=== PATIENT | female | born 1980 | race African-American/Black ===

== ENCOUNTER 2018-12-31 14:14 | Emergency (ER) | payer MEDICAID, MEDICARE ==
[~2018-12-31] VITALS: Ht 162.6 cm; Wt 84.0 kg
[2018-12-31 18:57] LABS: BASOPHILS % 0.6 % (0.0-2.0); EOSINOPHILS % 1.1 % (0.0-5.0); HEMATOCRIT. 36.3 % (36.0-48.0); MEAN CORPUSCULAR HEMOGLOBIN 26.4 pg (28.0-32.0); MONOCYTES % 6.3 % (2.0-8.0); PLATELET 409 x1000/uL (130-400); RED BLOOD CELL COUNT 4.54 mill/uL (4.2-5.4); RED CELL DISTRIBUTION WIDTH 15.1 % (11.6-14.6)
[2018-12-31 19:01] LABS: CHLORIDE 106 mEq/L (98-107)
[2018-12-31 19:46] LABS: CLARITY URINE CLEAR (CLEAR); COLOR URINE YELLOW (YELLOW); KETONES URINE TRACE (NEGATIVE); LEUKOCYTE ESTERASE URINE NEGATIVE (NEGATIVE); NITRITE URINE NEGATIVE (NEGATIVE); OCCULT BLOOD URINE NEGATIVE (NEGATIVE); PH URINE 6.5 (4.5-8.0); PROTEIN URINE NEGATIVE (NEGATIVE); SPECIFIC GRAVITY URINE 1.027 (1.005-1.030); UROBILINOGEN URINE 0.2 E.U./dL (0.2-1.0)
[2018-12-31] MEDS ORDERED: IBUPROFEN 600MG TABLET PO ONE (23:00)
[2018-12-31 23:34] VITALS: BP 126/72
== END 2018-12-31 23:34 | disposition home or self-care (01) ==
LOC: ER 14:14
DX: N83.292 Other ovarian cyst, left side (principal); N83.291 Other ovarian cyst, right side; Z87.891 Personal history of nicotine dependence
CPT/HCPCS: 36415; 76830; 76856; 81025; 99284

== ENCOUNTER 2020-12-03 10:20 | Emergency (ER) | payer SELFPAY ==
[~2020-12-03] VITALS: Ht 160 cm; Wt 78.0 kg
[2020-12-03 10:31] VITALS: BP 128/88
== END 2020-12-03 10:53 | disposition home or self-care (01) ==
LOC: ER 10:20
DX: K02.9 Dental caries, unspecified (principal); Z88.0 Allergy status to penicillin
CPT/HCPCS: 99283